=== PATIENT | male | born 1950 | race Caucasian/White ===

== ENCOUNTER 2021-05-24 08:23 | Emergency (ER) | payer MEDICARE, OTHER, SELFPAY ==
--- NOTE | 2021-05-24 08:25 | ED.SKABFB ---
HPI - Skin/Abscess/Foreign Bdy General Chief complaint: Skin/Abscess/Foreign Body Stated complaint: Rash Time Seen by Provider: 05/24/21 08:25 Source: patient and RN notes reviewed History of Present Illness HPI narrative: Patient is a 71-year-old male who presents the urgent care complaints of an itchy raised rash to bilateral lower arms and left upper thigh. Patient states that he woke up with a rash this morning. Denies of any recent contact with poison sloan/poison oak. Denies a fever. No other acute complaints. No acute distress noted. Patient aware of the plan of care. Some parts of this dictation were generated by voice recognition software and may contain typographical and/or grammatical inaccuracies. Related Data Allergies Allergy/AdvReac Type Severity Reaction Status Date / Time No Known Drug Allergies Allergy Unknown Unknown Verified 05/24/21 08:39 Review of Systems Review of Systems: CONSTITUTIONAL: Denies fever, chills, or sweats. EYES: Denies visual changes, redness, or discharge. ENT: Denies rhinorrhea, congestion, sore throat, or otalgia. CARDIOVASCULAR: Denies chest pain, palpitations, or edema. RESPIRATORY: Denies cough or dyspnea. GASTROINTESTINAL: Denies abdominal pain, nausea, vomiting, or diarrhea. GENITOURINARY: Denies dysuria or hematuria. SKIN: Reports of red itchy raised rash to bilateral lower arms and left thigh MUSCULOSKELETAL: Denies back pain, joint pain, or myalgia. NEUROLOGIC: Denies headache, numbness, or weakness. All other systems reviewed are negative, except as documented in HPI. [facility] Family History Family History Father Brain cancer Social History Social History Smoking status: Never smoker Alcohol intake: never Substance use: never Comments At the time of my signature, I reviewed and agree with the nursing past medical, surgical, social, and family history. There is no relevant family history pertinent to the patient complaint. Exam Narrative: GENERAL: This is a well-nourished, well-developed patient, in no apparent distress. HEAD: normocephalic, atraumatic. EYES: PERRL. Sclera clear/white. Vision is grossly intact. EARS: External ears normal NOSE: External nose normal with no obvious nasal discharge, nares without redness, no rhinorrhea. THROAT: Mucous membranes moist NECK: Neck supple RESPIRATORY: Clear to auscultation. Breath sounds equal bilaterally. No wheezes, rales, or rhonchi. SKIN: Pruritic erythemic raised dermatitis to bilateral forearms and left thigh NEURO: awake, alert, and oriented to person, place and time. There were no obvious focal neurologic abnormalities. EXTREMITIES: No clubbing, cyanosis, or edema. Course Vital Signs Vital signs: Vital Signs Temperature 99.2 F 05/24/21 08:34 Pulse Rate 102 H 05/24/21 08:34 Respiratory Rate 16 05/24/21 08:34 Blood Pressure 142/86 H 05/24/21 08:34 Pulse Oximetry 99 05/24/21 08:34 Temperature 99.2 F 05/24/21 08:34 Pulse Rate 102 H 05/24/21 08:34 Respiratory Rate 16 05/24/21 08:34 Blood Pressure 142/86 H 05/24/21 08:34 Pulse Oximetry 99 05/24/21 08:34 Reviewed-patient is informed that they may have pre-hypertension or hypertension based on a blood pressure reading in the department. I recommend the patient call the primary care provider listed on their discharge instructions or a physician of their choice this week to arrange follow-up for further evaluation of possible pre-hypertension or hypertension. MDM - Skin/Abscess/Foreign Bdy MDM Narrative Medical decision making narrative: Advised the patient to use a daily antihistamine such as Claritin/Zyrtec/Benadryl as needed for itch. Complete steroid regimen as prescribed. Be sure to eat and drink with medication. Use the prescription cream to the affected areas avoiding the groin, underarms and near the eyes. Be awar
[2021-05-24 08:34] VITALS: BP 142/86; PULSE 102; RESP 16; TEMP 37.3; O2SAT 99
== END 2021-05-24 08:45 | disposition home or self-care (01) ==
PROVIDERS: Emergency Provider Nurse Practitioner Family
DX: L23.7 Allergic contact dermatitis due to plants, except food (principal)
CPT/HCPCS: 99213; G0463

== ENCOUNTER 2023-01-10 10:00 | Outpatient (CLI) | payer MEDICARE, OTHER, SELFPAY ==
[2023-01-10 21:24] LABS: Anion Gap 12 mmol/L (8-16); Blood Urea Nitrogen 23 mg/dL (9-20); Calcium 9.7 mg/dL (8.4-10.2); Carbon Dioxide 22 mmol/L (22-30); Chloride 103 mmol/L (98-107); Cholesterol 210 mg/dL (0-200); Estimated Glomerular Filt Rate > 60; Glucose 132 mg/dL (65-110); HDL Direct 30 mg/dL; LDL Cholesterol Direct 138 mg/dL; Potassium 4.4 mmol/L (3.4-5.0); Sodium 137 mmol/L (137-145); Triglycerides 162 mg/dL (<150)
== END 2023-01-10 10:01 | disposition home or self-care (01) ==
LOC: ANHBWCLAB 20:00
PROVIDERS: PCP Nurse Practitioner Adult Health; Visit Provider Nurse Practitioner Adult Health
DX: Z13.6 Encounter for screening for cardiovascular disorders (principal); R03.0 Elevated blood-pressure reading, without diagnosis of hypertension
CPT/HCPCS: 36415; 80048; 80061

== ENCOUNTER 2023-02-14 07:29 | Outpatient (CLI) | payer MEDICARE, OTHER, SELFPAY ==
[2023-02-14 19:44] LABS: Cholesterol 212 mg/dL (0-200); HDL Direct 26 mg/dL; Triglycerides 218 mg/dL (<150)
[2023-02-14 19:55] LABS: LDL Cholesterol Direct 132 mg/dL
[2023-02-14 20:05] LABS: Hemoglobin A1C 6.3 % (<5.7)
== END 2023-02-14 07:30 | disposition home or self-care (01) ==
LOC: ANHBWCLAB 07:31
PROVIDERS: PCP Nurse Practitioner Adult Health; Visit Provider Nurse Practitioner Adult Health
DX: Z13.6 Encounter for screening for cardiovascular disorders (principal); R73.9 Hyperglycemia, unspecified
CPT/HCPCS: 36415; 80061; 83036